=== PATIENT | female | born 1995 | race American Indian/Alaskan Native ===

== ENCOUNTER 2017-04-08 03:03 | Emergency (ER) | payer SELFPAY ==
[2017-04-08 04:27] VITALS: BP 113/71
[2017-04-08] MEDS ORDERED: XYLOCAINE 1% MPF 5 mL INFILTRATI ONE (08:11)
[2017-04-08] MEDS ORDERED: ZITHROMAX PO ONE (08:11)
[2017-04-08] MEDS ORDERED: ROCEPHIN IM ONE (08:11)
--- NOTE | 2017-04-08 08:18 | Emergency Department Report ---
ED Female HPI - General Chief complaint: Urogenital-Female Stated complaint: VAGINAL PAIN Time Seen by Provider: 04/08/17 07:41 Source: patient Mode of arrival: Ambulatory Limitations: No Limitations - History of Present Illness Initial comments: Patient is a 21-year-old female presents with vaginal discharge or malodorous vaginal pain 3 days laceration contact 3 days ago last menstrual period 3 weeks ago patient denies nausea vomiting no abdominal pain MD Complaint: vaginal discharge, pelvic pain, possible STD Onset/Timin -: week(s) Location: other (vagina) Severity: moderate Severity scale (0 -10): 4 Quality: burning Consistency: constant Improves with: none Worsens with: none Are you Now?: No Last Menstrual Period: 03/18/17 EDC: 12/23/17 Associated Symptoms: vaginal discharge, dysuria. denies: vaginal bleeding, abdominal pain, nausea/vomiting, fever/chills - Related Data Sexually active: Yes : 0 Para: 0 A: 0 Previous Rx's Medication Instructions Recorded Last Taken Type Acyclovir [Zovirax] 400 mg PO TID #30 tablet 04/08/17 Unknown Rx metroNIDAZOLE [Flagyl] 500 mg PO Q12HR #20 tab 04/08/17 Unknown Rx Allergies Allergy/AdvReac Type Severity Reaction Status Date / Time No Known Allergies Allergy Unverified 04/08/17 04:21 ED Review of Systems ROS: Stated complaint: VAGINAL PAIN Other details as noted in HPI Constitutional: denies: chills, fever Eyes: denies: eye pain, eye discharge, vision change ENT: denies: ear pain, throat pain Respiratory: denies: cough, shortness of breath, wheezing Cardiovascular: denies: chest pain, palpitations Endocrine: no symptoms reported Gastrointestinal: denies: abdominal pain, nausea, diarrhea Genitourinary: dysuria, frequency, discharge, dyspareunia. denies: urgency, hematuria Musculoskeletal: denies: back pain, joint swelling, arthralgia Skin: denies: rash, lesions Neurological: denies: headache, weakness, paresthesias Psychiatric: denies: anxiety, depression Hematological/Lymphatic: denies: easy bleeding, easy bruising ED Past Medical Hx - Past Medical History Previous Medical History?: No - Surgical History Past Surgical History?: No - Social History Smoking Status: Current Every Day Smoker Substance Use Type: Alcohol - Medications Home Medications: Home Medications Medication Instructions Recorded Confirmed Last Taken Type Acyclovir [Zovirax] 400 mg PO TID #30 tablet 04/08/17 Unknown Rx metroNIDAZOLE [Flagyl] 500 mg PO Q12HR #20 tab 04/08/17 Unknown Rx ED Physical Exam - General Limitations: No Limitations General appearance: alert, in no apparent distress - Head Head exam: Present: atraumatic, normocephalic - Eye Eye exam: Present: normal appearance - ENT ENT exam: Present: mucous membranes moist - Neck Neck exam: Present: normal inspection - Respiratory Respiratory exam: Present: normal lung sounds bilaterally. Absent: respiratory distress - Cardiovascular Cardiovascular Exam: Present: regular rate, normal rhythm. Absent: systolic murmur, diastolic murmur, rubs, gallop - GI/Abdominal GI/Abdominal exam: Present: soft, normal bowel sounds - Rectal Rectal exam: Present: deferred - External exam: Present: normal external exam, erythema, lesions (5 round lesions pain no drainage ). Absent: swelling, lacerations, bleeding Speculum exam: Present: erythema, vaginal discharge, other (erythema ulcers yellow no bleeding no trauma, cmt, white green discharge malodorous cervix is closed ). Absent: cervical discharge, vaginal bleeding, foreign body, tissue, laceration Bi-manual exam: Present: cervical motion tendernes. Absent: adnexal mass, uterine enlargement, uterine tenderness - Extremities Exam Extremities exam: Present: normal inspection - Back Exam Back exam: Present: normal inspection - Neurological Exam Neurological exam: Present: alert, oriented X3 - Psychiatric Psychiatric exam: Present: normal affect, normal mood - Skin Skin exam: Present: warm, dry, intact, normal color. Absent: rash ED Course Vital Signs 04/08/17 04:21 Temperature 100.4 F H Pulse Rate 105 H Respiratory 18 Rate Blood Pressure 113/71 O2 Sat by Pulse 98 Oximetry ED Medical Decision Making - Lab Data Laboratory Tests 04/08/17 08:45 Urine Color [place] Urine Turbidity Clear Urine pH 5.0 Ur Specific [place] 1.026 Urine Protein 30 mg/dl Urine Glucose (UA) Neg Urine Ketones Neg Urine Blood Mod Urine Nitrite Pos Urine Bilirubin Neg Urine Urobilinogen 4.0 Ur Leukocyte Esterase Sm Urine WBC (Auto) 19.0 H Urine RBC (Auto) 27.0 U Epithel Cells (Auto) 7.0 Urine Mucus Few Urine Yeast (Budding) 1+ Urine HCG, Qual Negative - Medical Decision Making Patient is a 21-year-old female presents with vaginal discharge or malodorous vaginal pain 3 days laceration contact 3 days ago last menstrual period 3 weeks ago patient denies nausea vomiting no abdominal pain exam patient appears well and nontoxic there is no abdominal pain no rebound no bruit no hernia vaginal exam mons intact volvovagina labial lesions 5 round erythema pain to touch vaginal exam moderate erythema Y green discharge malodorous multiple ulcers yellow playful touch cervix is closed no discharge noted CMT plan obtain GC chlamydia cultures were prepped hCG UA treat for STI exposure DC'd home in stable condition prescription for Flagyl and Diflucan and acyclovir 400mg po 5 x daily by mouth follow health department in 2-3 days for HSV and HIV screening patient verbalizes understanding and agreement with discharge plan for DC'd home in stable condition at this time Critical care attestation.: If time is entered above; I have spent that time in minutes in the direct care of this critically ill patient, excluding procedure time. ED Disposition Clinical Impression: STI (sexually transmitted infection) Genital herpes Qualifiers: Herpes simplex infection site: vulvovaginitis Qualified Code(s): A60.04 - Herpesviral vulvovaginitis Disposition: DC-01 TO HOME OR SELFCARE Is pt being admited?: No Does the pt Need Aspirin: No Condition: Good Instructions: Genital Herpes Simplex (ED), Sexually Transmitted Diseases in Adolescents (ED) Prescriptions: Acyclovir [Zovirax] 400 mg PO TID #30 tablet metroNIDAZOLE [Flagyl] 500 mg PO Q12HR #20 tab Referrals: PRIMARY CARE, [Primary Care Provider] - 3-5 Days Forms: Work/School Release Form(ED) Time of Disposition: 09:00
[2017-04-08 08:55] LABS: Bilirubin,Urine NEG (Negative); Blood,Urine MOD (Negative); Color,Urine Amber (Yellow); Mucus,Urine FEW /HPF; Nitrite,Urine POS (Negative)
[2017-04-08 08:56] LABS: HCG Qualitative,Urine Negative (Negative)
== END 2017-04-08 09:11 | disposition home or self-care (01) ==
LOC: ED 03:03
DX: A60.04 Herpesviral vulvovaginitis (principal); B33.8 Other specified viral diseases; F17.200 Nicotine dependence, unspecified, uncomplicated
CPT/HCPCS: 81001; 81025; 87210; 87591; 96372; 99284; J0696

== ENCOUNTER 2017-08-17 21:30 | Emergency (ER) | payer OTHER ==
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
[2017-08-18] MEDS: MOTRIN PO ONE ×2 (01:27→01:43)
[2017-08-18 01:43] VITALS: BP 138/89
[2017-08-18] MEDS ORDERED: MOTRIN ONE (12:30)
== END 2017-08-18 01:46 | disposition home or self-care (01) ==
LOC: ED 21:30
DX: R07.89 Other chest pain (principal); F17.200 Nicotine dependence, unspecified, uncomplicated; V49.19XA Passenger injured in collision with other motor vehicles in nontraffic accident, initial encounter; W22.12XA Striking against or struck by front passenger side automobile airbag, initial encounter; Y93.89 Activity, other specified; Y99.8 Other external cause status; Y92.488 Other paved roadways as the place of occurrence of the external cause
CPT/HCPCS: 99283

== ENCOUNTER 2018-03-24 15:41 | Emergency (ER) | payer SELFPAY ==
[2018-03-24 15:56] VITALS: BP 143/91
--- NOTE | 2018-03-24 17:33 | Emergency Department Report ---
HPI - General Chief Complaint: Chest Pain Time Seen by Provider: 03/24/18 17:17 - HPI HPI: This is a 22-year-old female with a history of blood pressure presents complaining of chest tightness and shortness of breath the past 3 days. Patient states pain is localized to the medial chest region. Patient states she's been out of her blood pressure medicine for about a week now. Patient denies any history of asthma. Patient states that pain is resolved at the moment. Patient states she wanted to be evaluated because she felt that the pain worsened earlier today. ED Past Medical Hx - Past Medical History Previous Medical History?: Yes Hx Hypertension: Yes Additional medical history: Chronic headache - Surgical History Past Surgical History?: No - Social History Smoking Status: Never Smoker Substance Use Type: None - Medications Home Medications: Home Medications Medication Instructions Recorded Confirmed Last Taken Type Acyclovir [Zovirax] 400 mg PO TID #30 tablet 04/08/17 Unknown Rx metroNIDAZOLE [Flagyl] 500 mg PO Q12HR #20 tab 04/08/17 Unknown Rx Butalb/Acetamin/Caff 50-325-40 1 tab PO Q8HR PRN #12 tablet 01/09/18 Unknown Rx [Fioricet] Amoxicillin/K Clav Tab [Augmentin 1 tab PO Q12HR #20 tab 01/20/18 Unknown Rx 875MG TAB] Cetirizine HCl [ZyrTEC] 10 mg PO QAM 14 Days #14 capsule 01/20/18 Unknown Rx Fluticasone [Flonase] 1 spray NS QDAY 14 Days #1 bottle 01/20/18 Unknown Rx methylPREDNISolone [Medrol Dose 4 mg PO DAILY #1 tab.ds.pk 01/20/18 Unknown Rx David] Naproxen [Naprosyn TAB] 500 mg PO BID PRN #12 tablet 03/24/18 Unknown Rx ED Review of Systems ROS: Stated complaint: CHEST PAIN/LFT EYE PAIN Other details as noted in HPI Comment: All other systems reviewed and negative Physical Exam - Physical Exam Vital Signs: Vital Signs 03/24/18 15:50 Temperature 98.5 F Pulse Rate 91 H Respiratory 16 Rate Blood Pressure 143/91 O2 Sat by Pulse 98 Oximetry Physical Exam: GENERAL: Alert and oriented x3, no apparent distress, Normal Gait, atraumatic. HEAD: Head is normocephalic and a-traumatic. EYES: Extra ocular muscles are intact. Pupils are equal, round, and reactive to light and accommodation. NECK: Supple. Non edematous, No carotid bruits. No lymphadenopathy or thyromegaly. No C-spine tenderness LUNGS: Symetrical with respiration, No wheezing, no rales or crackles, CTAB. HEART: S1, S2 present, regular rate and rhythm without murmur, no rubs, no gallops. Non tender to palpation SKIN: Warm and dry, No lesions, No ulceration or induration present. ED Course Vital Signs 03/24/18 15:50 Temperature 98.5 F Pulse Rate 91 H Respiratory 16 Rate Blood Pressure 143/91 O2 Sat by Pulse 98 Oximetry ED Medical Decision Making - Lab Data Result diagrams: 03/24/18 18:04 03/24/18 18:04 - Radiology Data Radiology results: report reviewed, image reviewed FINAL REPORT PROCEDURE: XR CHEST ROUTINE 2V TECHNIQUE: PA and lateral chest radiographs were obtained. CPT 61825 HISTORY: cp/sob COMPARISON: No prior studies are available for comparison. FINDINGS: Heart: Normal. Mediastinum/Vessels: Normal. Lungs/Pleural space: Normal. Bony thorax: No acute osseous abnormality. Other: IMPRESSION: Normal examination. Transcribed By: MICHELE Dictated By: ALYSON OTERO MD Electronically Authenticated By: ALYSON OTERO MD Signed Date/Time: 03/24/182100 - Medical Decision Making 22-year-old female presenting with costochondral chest pain, CBC, BMP, urinalysis, test, chest x-ray obtained. All labs within normal limits, d-dimer negative chest x-ray negative Discussed this findings with the patient. Discussed the patient follow up with primary care physician as discussed. Discuss if any worsening or new symptoms return to ED Vital signs are normal patient is in no respiratory or acute distress. She's speaking in clear complete sentences. understanding instructions. Critical care attestation.: If time is entered above; I have spent that time in minutes in the direct care of this critically ill patient, excluding procedure time. ED Disposition Clinical Impression: Chest pain, Costochondritis Disposition: DC-01 TO HOME OR SELFCARE Is pt being admited?: No Does the pt Need Aspirin: No Condition: Stable Instructions: Chest Pain (ED), Costochondritis (ED) Additional Instructions: Make sure to follow up with the primary care physician as discussed. Take all your medications as you've been prescribed. If you have any worsening symptoms or develop new symptoms please return to ED immediately. Prescriptions: Naproxen [Naprosyn TAB] 500 mg PO BID PRN #12 tablet PRN Reason: abdominal cramping Referrals: EL PORTILLO DO [Primary Care Provider] - 3-5 Days SMITH BARRY MD [Referring] - 3-5 Days [facility] [Outside] - 3-5 Days [facility] [Outside] - 3-5 Days Forms: Work/School Release Form(ED) Time of Disposition: 21:32
[2018-03-24 18:32] LABS: Basophils % (Auto) 0.3 % (0.0-1.8); Eosinophils % (Auto) 0.4 % (0.0-4.3); Hematocrit 43.9 % (30.3-42.9); Hemoglobin 14.2 gm/dl (10.1-14.3); Lymphocytes # (Auto) 3.1 K/mm3 (1.2-5.4); Lymphocytes % (Auto) 39.3 % (13.4-35.0); Mean Corpuscular HGB Conc 32 % (30-34); Mean Corpuscular Volume 87 fl (79-97); Monocytes # (Auto) 0.5 K/mm3 (0.0-0.8); Monocytes % (Auto) 6.9 % (0.0-7.3); Platelet Count 248 K/mm3 (140-440); Red Blood Count 5.03 M/mm3 (3.65-5.03); Red Cell Distribution Width 13.8 % (13.2-15.2)
[2018-03-24] MEDS ORDERED: IBUPROFEN PO ONE (19:01)
[2018-03-24 19:12] LABS: BUN/Creatinine Ratio 16; Blood Urea Nitrogen 11 mg/dL (7-17); Calcium 9.3 mg/dL (8.4-10.2); Hemolysis Index 24
--- NOTE | 2018-03-24 21:01 | XRay Report ---
FINAL REPORT PROCEDURE: XR CHEST ROUTINE 2V TECHNIQUE: PA and lateral chest radiographs were obtained. CPT 73588 HISTORY: cp/sob COMPARISON: No prior studies are available for comparison. FINDINGS: Heart: Normal. Mediastinum/Vessels: Normal. Lungs/Pleural space: Normal. Bony thorax: No acute osseous abnormality. Other: IMPRESSION: Normal examination.
== END 2018-03-24 22:15 | disposition home or self-care (01) ==
LOC: ED 15:41
DX: M94.0 Chondrocostal junction syndrome [Tietze] (principal); I10 Essential (primary) hypertension
CPT/HCPCS: 36415; 71046; 80048; 84703; 85025; 85379; 93005; 93010